=== PATIENT | female | born 1955 | race Caucasian/White ===

== ENCOUNTER 2016-04-13 13:51 | Emergency (ER) | payer OTHER ==
[2016-04-13 14:05] VITALS: BP 167/62; PULSE 78; RESP 18; TEMP 98; O2SAT 98
--- NOTE | 2016-04-13 14:54 | UCPHY ---
H & P Patient Type: New Chief Complaint Nursing Narrative: c/o Rt eye redness/swollen since 3wks inc. last night HPI/ROS: HPI CHIEF COMPLAINT: right upper eyelid swelling, redness no visual change HISTORY OF PRESENT ILLNESS: Patient very pleasant 52-year-old female only significant past medical history for hypertension, she lives in [place] and is visiting [place]. She arrived yesterday. 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 She denies any visual disturbance she denies eye pain. Denies fever. Does endorse some drainage. Past Medical History: Hypertension Past Surgical History: denies significant surgical history Social History: Lives in [place], visiting [place], works as an missile technician, denies drugs alcohol tobacco products Family History: Noncontributory ROS REVIEW OF SYSTEMS: A comprehensive 10 point review of systems is otherwise negative aside from elements mentioned in the history of present illness. Exam Constitutional triage nursing summary reviewed, vital signs reviewed, awake/ alert. Eyes normal conjunctivae and sclera, EOMI, PERRLA. right upper eyelid: Mild erythema and swelling, no evidence of hordeolum, no evidence of orbital cellulitis on exam. No proptosis. Extra movements intact. No pain with extraocular movements. Pupils equal round react to light, extraocular movements intact. Anterior chambers normal. Conjunctivae normal. No hyphema, no iritis, no flare HENT normal inspection, atraumatic, moist mucus membranes, no epistaxis, neck supple/ no meningismus, no raccoon eyes. Respiratory clear to auscultation bilaterally, normal breath sounds, no respiratory distress, no wheezing. Cardiovascular rate normal, regular rhythm, no murmur, no edema, distal pulses normal. Gastrointestinal soft, non-tender, no rebound, no guarding, normal bowel sounds, no distension, no pulsatile mass. Genitourinary no CVA tenderness. Musculoskeletal no midline vertebral tenderness, full range of motion, no calf swelling, no tenderness of extremities, no meningismus, good pulses, neurovascularly intact. Skin pink, warm, & dry, no rash, skin atraumatic. Neurologic awake, alert and oriented x 3, AAOx3, moves all 4 extremities equally, motor intact, sensory intact, CN II-XII intact, normal cerebellar, normal vision, normal speech. Psychiatric normal mood/affect. Heme/Lymph/Immune no lymphadenopathy. Differential Diagnosis: Includes but is not limited to in and in no particular order blepharitis, allergic conjunctivitis, bacterial conjunctivitis , periorbital cellulitis, no evidence of orbital cellulitis Medical Decision Making: this patient appears to have an upper right eyelid blepharitis. Patient be started on erythromycin cream. She understands to return to the ER if she develops any worsening symptoms questions or concerns includes worsening pain, swelling, fever or questions or concerns. She understands she needs to follow up with Ophthalmology tomorrow. Call their after leaving here today for an appointment. She understands. Source: Patient - Personal History Current Tetanus Diphtheria and Acellular Pertussis (TDAP): Yes - Medical/Surgical History Other PMH: denies - Family History Significant Family History: No pertinent family hx - Social History Smoking Status: Never smoked Constitutional: Initial Vital Signs Temperature (C) 36.6 C 04/13/16 14:02 Heart Rate 78 04/13/16 14:02 Respiratory Rate 18 04/13/16 14:02 Blood Pressure 167/62 H 04/13/16 14:02 O2 Sat (%) 98 04/13/16 14:02 O2 Delivery Mode Room Air Allergies/Adverse Reactions: No Known Allergies Allergy (Unverified 09/20/10 17:02) Home Medications: Medication Instructions Recorded Erythromycin 0.5% 1 merlin EACHEYE BID #1 opht.oint 04/13/16 Losartan Potassium 04/13/16 Departure - Departure Disposition: Home, Routine, Self-Care Clinical Impression: Blepharitis Qualifiers: Blepharitis type: unspecified type Laterality: right Eyelid: upper Qualifier Code: (H01.001) Unspecified blepharitis right upper eyelid Condition: Good Instructions: Blepharitis (ED) Additional Instructions: 1. Return immediately to the emergency room if develops any worsening symptoms questions or concerns. 2. Please follow up with Ophthalmology tomorrow. [place]errals[place],. [Primary Care Provider] - As per Instructions Viviane Moeller MD [Non Staff Provider ()] - As per Instructions Prescriptions: Erythromycin 0.5% 1 merlin EACHEYE BID #1 opht.oint - PQRS PQRS Measurement: n/a
== END 2016-04-13 15:15 | disposition home or self-care (01) ==
LOC: CED 13:51
DX: H01.001 Unspecified blepharitis right upper eyelid (principal); I10 Essential (primary) hypertension
CPT/HCPCS: G0463-PO